=== PATIENT | male | born 1945 | race Caucasian/White ===

== ENCOUNTER → 2016-07-31 | Outpatient (CLI) | payer OTHER ==
--- NOTE | ~2016-07-31 | MR17 ---
[facility] A Service [facility] RADIOLOGY TEXT RESULTS PATIENT: ENMANUEL SRIVASTAVA [facility] 47 UNIT #: [id number] AGE: [address]: Marco Campoverde II, MD SEX: M ORDER DR: [id number] [facility] [address] [place], [place] [address] [id number] O MR#: [id number] Acc #: [id number] NAME: ENMANUEL SRIVASTAVA : 1945 SEX: M STUDY DATE/TIME: 07/31/2016 15:12 UNIT: [facility] ROOM: STUDY DESCRIPTION: MR Brain WWo Contrast Attending Physician: Marco Campoverde II., M.D. Referring Physician: Marco Campoverde II., M.D. Ordering Physician: Marco Campoverde II., M.D. MEDICAL IMAGING REPORT This report is preliminary unless electronic signature is present EXAM MRI of the brain, with and without contrast, 07/31/2016. COMPARISON MRA head and neck without contrast, 07/31/2016. HISTORY Balance problems for 10-12 years. It has increased in the last 6 months with fall in October 2015. There is concussion in the right side of the head with numbness of the entire left side of the body since . TECHNIQUE Multisequence, multiplanar imaging of the brain was obtained with and without contrast. GFR measured greater than 60. 20 mL of MultiHance was administered intravenously. FINDINGS No acute stroke, space-occupying intracranial mass, mass effect, midline shift, or hydrocephalus. Vascular flow voids of the major cerebral arteries and dural venous sinuses are not completely occluded in these thicker slices. Mild S-shaped nasal septal deviation is seen. Status post right cataract surgery. Mastoid air cells, orbits with the ocular structures are within normal limits. Thick slices through the sella with the pituitary gland, pineal region are unremarkable. Mild degenerative changes are in the cervical spine. Postcontrast sequences do not demonstrate enhancing lesions. IMPRESSION No demonstrable intracranial abnormality. [facility] A Service [facility] RADIOLOGY TEXT RESULTS PATIENT: ENMANUEL SRIVASTAVA LOCATION: [facility] : 47 UNIT #: [id number] AGE: [address]: Marco Campoverde II, MD SEX: M ORDER DR: Dictated by... Estephania Godwin M.D. THIS IS AN ELECTRONICALLY VERIFIED REPORT Estephania Godwin M.D. at 08/02/2016 3:19 PM CPR/joey TD: 08/01/2016 13:20 JOB #: [id number] MEDICAL IMAGING REPORT Page 1 of 1 COPY
--- NOTE | ~2016-07-31 | MR134 ---
[facility] A Service of [facility] RADIOLOGY TEXT RESULTS PATIENT: ENMANUEL SRIVASTAVA LOCATION: [facility] : 49 UNIT #: [id number] AGE: [address]: Marco Campoverde II, MD SEX: M ORDER DR: [id number] [facility] [address] [place], [place] [address] [id number] O MR#: [id number] Acc #: [id number] NAME: ENMANUEL SRIVASTAVA : 1945 SEX: M STUDY DATE/TIME: 07/31/2016 17:16 UNIT: [facility] ROOM: STUDY DESCRIPTION: MR MRA Neck Wo Contrast Attending Physician: Marco Campoverde II., M.D. Referring Physician: Marco Campoverde II., M.D. Ordering Physician: Marco Campoverde II., M.D. Primary Care Physician: Primary Care Physician No MRI CENTER REPORT This report is preliminary unless electronic signature is present. EXAM MR angiogram of the neck without contrast dated 07/31/2016 COMPARISON MRI and MRA head without contrast dated 07/31/2016. HISTORY Balance problems for 10-12 years. Increasing in the last 6 months. Patient fell October 2015 with rig fracture. Concussion in the right side of the head with numbness to the entire left side of the body since 1990. FINDINGS Source and 3-D reconstruction MIP images of the neck arteries were obtained without contrast. 3 vessel aortic arch is seen. Bilateral common, internal and external carotid arteries demonstrate heterogeneous signal in bilateral ICA bulbs. Symmetrical flow is seen in bilateral ICA without any distal flow limitation. Bilateral external carotid arteries are within normal limits. Left vertebral artery is dominant. 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 It extends intradurally and then decreases in caliber as it courses along its V4 segment. No obvious aneurysm or AVM is seen. IMPRESSION 1. Heterogeneity of signal is seen in bilateral internal carotid artery bulbs likely relating to flow turbulence and/or atherosclerotic plaque. 2. No hemodynamically flow-limiting significant stenosis in bilateral ICA per NASCET criteria. 3. 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 As it extends intradurally, the caliber changes and it could be a congenital appearance. It appears to be relatively of uniform decreased caliber favoring hypoplasia more than superimposed stenosis given the lack of significant plaques in the other vessels. [facility] A Service of [facility] RADIOLOGY TEXT RESULTS PATIENT: ENMANUEL SRIVASTAVA LOCATION: [facility] : 49 UNIT #: [id number] AGE: [address]: Marco Campoverde II, MD SEX: M ORDER DR: Dictated by... Estephania Godwin M.D. THIS IS AN ELECTRONICALLY VERIFIED REPORT Estephania Godwin M.D. at 08/02/2016 3:19 PM CPR/mjgreg TD: 08/01/2016 13:30 JOB #: [id number] MRI CENTER REPORT Page 1 of 1 COPY
--- NOTE | ~2016-07-31 | MR122 ---
[facility] A Service of [facility] RADIOLOGY TEXT RESULTS PATIENT: ENMANUEL SRIVASTAVA LOCATION: [facility] : 49 UNIT #: [id number] AGE: [address]: Marco Campoverde II, MD SEX: M ORDER DR: [id number] [facility] [address] [place], [place] [address] [id number] O MR#: [id number] Acc #: [id number] NAME: ENMANUEL SRIVASTAVA : 1945 SEX: M STUDY DATE/TIME: 07/31/2016 17:06 UNIT: [facility] ROOM: STUDY DESCRIPTION: MR MRA Head Wo Contrast Attending Physician: Marco Campoverde II., M.D. Referring Physician: Marco Campoverde II., M.D. Ordering Physician: Marco Campoverde II., M.D. Primary Care Physician: No Primary Care Physician MRI CENTER REPORT This report is preliminary unless electronic signature is present. EXAM MR angiogram of the head without contrast dated 07/31/2016. COMPARISON MRI brain MRA neck dated 07/31/2016. HISTORY Balance problems for 10-12 years. Increased in the last 6 months with fall in October 2015 with fracture of the rib. Concussion in the right of the head. The has numbness to left side of the body since . FINDINGS Source and 3-D reconstruction MIP images of the [place] was obtained without contrast. Bilateral intracranial internal carotid arteries, anterior cerebral arteries and left middle cerebral arteries are within normal limits. There appears to be asymmetrically smaller in number vessels in the posterior aspect of the right sylvian MCA branches and the right posterior cerebral artery demonstrates asymmetrically decreased to no flow in the reconstruction MIP images along the presumed P3-P4 segment. Tiny bilateral PCom and ACOM are probably present. Basilar artery, left posterior cerebral arteries, proximal bilateral superior cerebellar arteries are within normal limits. Left vertebral artery is dominant. Right vertebral artery is very small. When read in conjunction with the MRA neck. It is a hypoplastic vessel. IMPRESSION 1. There appears to be asymmetrically smaller in number vessels in the posterior aspect of the right sylvian MCA branches and the right posterior cerebral artery demonstrates asymmetrically decreased to no flow in the reconstruction images along the presumed P3-P4 segment. When correlated with the source images, there is no obvious proximal stenosis seen. Small vessel atherosclerotic disease and narrowing cannot be completely excluded. [facility] A Service of [facility] RADIOLOGY TEXT RESULTS PATIENT: ENMANUEL SRIVASTAVA LOCATION: [facility] : 49 UNIT #: [id number] AGE: [address]: Marco Campoverde II, MD SEX: M ORDER DR: 2. No aneurysm or AVM. 3. The right vertebral artery is of small caliber when compared to the left. It could be related to hypoplasia but the entire course is not clearly seen. Refer to MRA neck. Dictated by... Estephania Godwin M.D. THIS IS AN ELECTRONICALLY VERIFIED REPORT Estephania Godwin M.D. at 08/03/2016 4:15 PM CPR/moris TD: 08/01/2016 13:13 JOB #: [id number] MRI CENTER REPORT Page 1 of 1 COPY
[2016-07-31 16:46] LABS: POC - CREATININE 0.85 mg/dL (0.64-1.27); POC - GFR >60.0 mL/min (>60)
== END | disposition home or self-care (01) ==
LOC: CMRI 16:10
PROVIDERS: Psychiatry & Neurology Neurology
DX: R42 Dizziness and giddiness (principal); R93.8 Abnormal findings on diagnostic imaging of other specified body structures
CPT/HCPCS: 70544; 70547; 70553; 82565; A9577